=== PATIENT | female | born 1945 | race Caucasian/White ===

== ENCOUNTER 2023-01-12 11:04 | Emergency (ER) | payer MEDICARE, SELFPAY ==
--- NOTE | 2023-01-12 11:10 | ED.URI ---
HPI - URI/Sore Throat General Chief Complaint: Upper Respiratory Infection Stated Complaint: cough/congested Time Seen by Provider: 01/12/23 11:10 Source: patient and RN notes reviewed History of Present Illness HPI Narrative: Patient is a 77-year-old female who presents to urgent care with complaints of cough and chest congestion for 2 days. Patient states she now has nasal congestion as well. Patient states her cough is productive and she has had low-grade fevers. Patient has a history of COPD and takes azithromycin 3 times a week prophylactically. Patient states she has had some mild increase in her shortness of breath. Reports of just having a ?lung scan? with her veterinary practice manager not too long ago. No other acute complaints. No acute distress noted. Patient aware of the plan of care. Some parts of this dictation were generated by voice recognition software and may contain typographical and/or grammatical inaccuracies. Related Data Home Medications Medication Instructions Recorded Confirmed fluticasone propionate 50 1 spray intranasal DAILY 01/14/20 01/12/23 mcg/actuation nasal spray,suspension (Flonase Allergy Relief) loratadine 10 mg tablet (Allergy 10 mg PO DAILY 01/14/20 01/12/23 Relief (loratadine)) azithromycin 500 mg tablet 500 mg PO USEASDIRECTD 01/12/23 01/12/23 fluticasone fur. 200 mcg-umeclid 1 ea inhalation DIRECTED 01/12/23 01/12/23 62.5 mcg-vilant 25 mcg inhalat.powder (Trelegy Ellipta) metoprolol succinate 25 mg 25 mg PO DIRECTED 01/12/23 01/12/23 tablet,extended release 24 hr montelukast 10 mg tablet 10 mg PO DIRECTED 01/12/23 01/12/23 Allergies Allergy/AdvReac Type Severity Reaction Status Date / Time No Known Allergies Allergy Verified 01/12/23 11:28 Review of Systems Review of Systems: CONSTITUTIONAL: Denies fever, chills, or sweats. EYES: Denies visual changes, redness, or discharge. ENT: Reports of sinus congestion, sore throat postnasal drainage CARDIOVASCULAR: Denies chest pain, palpitations, or edema. RESPIRATORY: Reports of productive cough with increased dyspnea GASTROINTESTINAL: Denies abdominal pain, nausea, vomiting, or diarrhea. GENITOURINARY: Denies dysuria or hematuria. SKIN: Denies rash or itching. MUSCULOSKELETAL: Denies back pain, joint pain, or myalgia. NEUROLOGIC: Denies headache, numbness, or weakness. All other systems reviewed are negative, except as documented in HPI. [facility], [facility] Past Medical History Medical History (Updated 01/12/23 @ 11:53 by DIGNA Churchill) COPD (chronic obstructive pulmonary disease) Rhinitis Surgical History Surgical History (Updated 01/03/20 @ 12:02 by Kimani Jay [facility]) H/O bilateral cataract extraction History of ear surgery Family History Family History (Updated 02/13/18 @ 16:16 by DOCTOR UNKNOWN) Mother Diabetes mellitus, Onset Age: 86 Hypertension, Onset Age: 86 Social History Social History (Updated 01/03/20 @ 12:02 by Kimani Jay [facility]) Smoking packs per day: 1 Smoking cigarettes per day: 20.0 Years smoked: 50 Smoking pack-years: 50.00 Smoking status: Former smoker Tobacco type: cigarettes Smoking end date: 10/02/14 Comments At the time of my signature, I reviewed and agree with the nursing past medical, surgical, social, and family history. There is no relevant family history pertinent to the patient complaint. Exam Narrative: GENERAL: This is a well-nourished, well-developed patient, in no apparent distress. HEAD: normocephalic, atraumatic. EYES: PERRL. Sclera clear/white. Vision is grossly intact. EARS: External ears normal, auditory canals clear and without drainage, TMs normal without perforation. Hearing grossly intact. NOSE: External nose normal with no obvious nasal discharge, nares without redness, no rhinorrhea. THROAT: Mucous membranes moist, posterior pharynx clear. NECK: Neck supple RESPIRATORY: Coarse throughout without wheezes SK
[2023-01-12 11:16] VITALS: BP 110/69; PULSE 78; RESP 20; TEMP 36.6; O2SAT 100
== END 2023-01-12 11:56 | disposition home or self-care (01) ==
PROVIDERS: Emergency Provider Nurse Practitioner Family
DX: J44.9 Chronic obstructive pulmonary disease, unspecified (principal); Z98.42 Cataract extraction status, left eye; Z98.41 Cataract extraction status, right eye; Z87.891 Personal history of nicotine dependence
CPT/HCPCS: 99213; G0463